=== PATIENT | male | born 1995 | race Two or more races ===

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

== ENCOUNTER 2018-10-04 16:56 | Emergency (ER) | payer MEDICAID, OTHER ==
[2018-10-04] MEDS ORDERED: PROPARACAINE 0.5% 15 ML OPHT DROP ONE (17:06)
[2018-10-04] MEDS ORDERED: PROPARACAINE 0.5% 15 ML OPHT DROP OP ONE (17:07)
--- NOTE | 2018-10-04 17:07 | EDPHY ---
H & P Stated Complaint: slept in contacts/bilat eye irritation Time Seen by Provider: 10/04/18 17:06 HPI/ROS: CHIEF COMPLAINT: bilateral eye pain HISTORY OF PRESENT ILLNESS: 23 year old male, generally healthy, with bilateral eye pain after wearing contact lenses over night. The lenses were not prescription--they were over the counter lenses designed to change eye color. No change in his vision. No swelling or drainage. No fever. REVIEW OF SYSTEMS: A ten system review of systems was performed and is negative with the exception of the items mentioned in the HPI. Past medical history: Negative Past surgical history: Negative Social history: Works at [employer]. Lives with his mother. No tobacco use. General Appearance: Alert. Vital signs reviewed. Eyes: Pupils equal and round, mild bilateral conjunctival injection, no discharge. Anicteric. Visual Acuity: noted from Nurse's notes. Pupils:equal round and reactive to light, EOMI Lids: no edema or swelling Skin: no proptosis, no periorbital erythema or swelling, no vesicles Conjunctivae: mildly injected OU, no discharge Cornea: exam with fluorescein shows bilateral punctate keratitis, mild Anterior chamber:normal, no hyphema or hypopyon ENT, Mouth: Mucous membranes are moist, no oropharyngeal erythema or edema. Neck: No lymphadenopathy, supple. Respiratory: Lungs are clear to auscultation; no wheezes, rales, or rhonchi. Cardiovascular: Regular rate and rhythm; no murmur, rub, or gallop. Gastrointestinal: Abdomen is soft and nontender, no masses or organomegaly, bowel sounds normal. Skin: Warm and dry, no rashes on exposed skin, normal color. Neurological: Alert and oriented. Moving all four extremities easily and equally. Facial sensation intact to light touch. Psychiatric: Normal affect. - Personal History Current Tetanus Diphtheria and Acellular Pertussis (TDAP): Yes - Medical/Surgical History Hx Asthma: No Hx Chronic Respiratory Disease: No Hx Diabetes: No Hx Cardiac Disease: No Hx Renal Disease: No Hx Cirrhosis: No Hx Alcoholism: No Hx HIV/AIDS: No Hx Splenectomy or Spleen Trauma: No Other PMH: fx neck - Social History Smoking Status: Never smoked Constitutional: Initial Vital Signs Temperature (C) 36.6 C 10/04/18 16:58 Heart Rate 64 10/04/18 16:58 Respiratory Rate 17 10/04/18 16:58 Blood Pressure 109/67 10/04/18 16:58 O2 Sat (%) 95 10/04/18 16:58 O2 Delivery Mode Room Air Allergies/Adverse Reactions: No Known Allergies Allergy (Verified 10/04/18 16:58) Home Medications: Medication Instructions Recorded Ofloxacin 0.3% [Ocuflox 0.3% (RX)] 1 drops EACHEYE QID #1 btl 10/04/18 Medical Decision Making ED Course/Re-evaluation: Bilateral keratitis after wearing contact lenses overnight. Pain/photophobia--properacaine used for exam. No evidence of herpes. No foreign body. No corneal abrasion. No laceration. Will treat with ocuflox drops, OTC pain medication, ophtho follow up. Danger signs reviewed with patient. - Data Points Medications Given: Discontinued Medications Proparacaine HCl (Alcaine 0.5%) 1 drops OP EDNOW ONE Stop: 10/04/18 17:08 Last Admin: 10/04/18 17:09 Dose: 1 drop Departure - Departure Disposition: Home, Routine, Self-Care Clinical Impression: Keratitis Condition: Good Instructions: Keratitis (ED) Additional Instructions: Adult Pain & Fever Control: We recommend Acetaminophen (Tylenol) and Ibuprofen (Motrin,Advil) for pain and fever control. When fever is high or pain severe, both drugs can be used at the same time, but at different intervals. Please note the time differences. Your dose is: Acetaminophen 650mg every 4 to 6 hours Ibuprofen 600mg every 6 hours with food Note: do not take Acetaminophen with Hydrocodone (Vicodin, Lortab) or Oycodone (Percocet). These medications also contain Acetaminophen. No more than 3000mg of Acetaminophen should be taken in 24 hours (for an adult). Use the eye drops four times daily, one drop in each eye. If you're eyes are still bothering you tomorrow you can call Dr. Tuttle and arrange to be seen. She is an roller print tender. Referrals: Tiago Valerio PA [Primary Care Provider] - As per Instructions Leidy Tuttle MD [Non Staff Provider (MD)] - As per Instructions Prescriptions: Ofloxacin 0.3% [Ocuflox 0.3% (RX)] 1 drops EACHEYE QID #1 btl
[2018-10-04] MEDS ORDERED: FLUORESCEIN SODIUM 1 MG STRIP OP ONE (17:11)
[2018-10-04 18:14] VITALS: BP 147/93
== END 2018-10-04 18:14 | disposition home or self-care (01) ==
DX: H16.8 Other keratitis (principal)